=== PATIENT | female | born 1985 | race Caucasian/White ===

== ENCOUNTER 2016-06-19 13:27 | Emergency (ER) | payer OTHER ==
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
[2016-06-19 14:25] VITALS: BP 127/76; PULSE 81; RESP 16; TEMP 98.2; O2SAT 98
== END 2016-06-19 14:25 | disposition home or self-care (01) ==
LOC: EDUNIT# → EDBD
DX: S16.1XXA Strain of muscle, fascia and tendon at neck level, initial encounter (principal); V00.321A Fall from snow-skis, initial encounter; Y92.828 Other wilderness area as the place of occurrence of the external cause; Y93.23 Activity, snow (alpine) (downhill) skiing, snowboarding, sledding, tobogganing and snow tubing